=== PATIENT | male | born 1995 | race Caucasian/White ===

== ENCOUNTER 2018-05-26 20:10 | Emergency (ER) | payer SELFPAY ==
[~2018-05-26] VITALS: Ht 177.8 cm; Wt 72.7 kg
[2018-05-26 20:14] VITALS: TEMP 97.2
[2018-05-26 21:05] VITALS: BP 112/61; PULSE 80
[2018-05-27] MEDS ORDERED: SINGULAIR 110 MG/TAB PO (10:53)
== END 2018-05-26 21:05 | disposition home or self-care (01) ==
LOC: COL.ER 20:10
DX: R11.2 Nausea with vomiting, unspecified (principal); F10.129 Alcohol abuse with intoxication, unspecified; J45.909 Unspecified asthma, uncomplicated; F17.220 Nicotine dependence, chewing tobacco, uncomplicated; K58.9 Irritable bowel syndrome, unspecified